=== PATIENT | male | born 1990 | race Caucasian/White ===

== ENCOUNTER 2023-08-07 14:25 | Emergency (ER) | payer MEDICAID ==
[~2023-08-07] VITALS: Ht 175.3 cm; Wt 83.9 kg
[2023-08-07 14:34] VITALS: BP 126/91; PULSE 89; RESP 14; TEMP 98; O2SAT 99
[2023-08-07] MEDS ORDERED: methocarbamoL 500 MG TAB PO STA (14:56)
[2023-08-07] MEDS ORDERED: KETOROLAC 30 MG/ML VIAL IM ONE (15:00)
[2023-08-07] MEDS ORDERED: LIDOCAINE 4% PATCH 1 EA PATCH TP ONE (15:00)
[2023-08-07 15:05] LABS: BASOPHILS % (AUTO) 0.4 % (0.0-2.0); EOSINOPHILS # (AUTO) 0.1 K/uL (0-0.4); HEMATOCRIT 51.1 % (36-52); HEMOGLOBIN 17.8 g/dL (12.0-18.0); LYMPHOCYTES # (AUTO) 2.1 K/uL (2.0-11.5); LYMPHOCYTES % (AUTO) 22.3 % (20.5-51.1); MEAN CORPUSCULAR HEMOGLOBIN 30 pg (27-31); MEAN CORPUSCULAR HGB CONC 35 g/dL (33-37); MEAN CORPUSCULAR VOLUME 86.5 fL (80-94); MONOCYTES # (AUTO) 0.4 K/uL (0.8-1.0); MONOCYTES % (AUTO) 4.6 % (1.7-9.3); NEUTROPHILS # (AUTO) 6.7 K/uL (1.8-7.7); NEUTROPHILS % (AUTO) 71.7 % (42.2-75.2); PLATELET COUNT (AUTO) 217 K/uL (140-450); RED CELL DISTRIBUTION WIDTH 13.5 % (11.6-13.7); WHITE BLOOD COUNT (AUTO) 9.3 K/uL (4.8-10.8)
[2023-08-07 15:23] LABS: ALANINE AMINOTRANSFERASE 24 U/L (12-78); ALBUMIN 4.6 g/dL (3.4-5.0); ALKALINE PHOSPHATASE 76 U/L (50-136); ANION GAP 8.1 (8-16); ASPARTATE AMINOTRANSFERASE 12 U/L (15-37); CALCIUM 9.4 mg/dL (8.5-10.1); CARBON DIOXIDE 33.4 mmol/L (21-32); CHLORIDE 101 mmol/L (98-107); GFR ARICAN-AMERICAN 112 mL/min (>90); GFR NON ARICAN-AMERICAN 93 mL/min (>90); GLUCOSE 102 mg/dL (74-106); POTASSIUM 4.5 mmol/L (3.5-5.1); SODIUM SERUM 138 mmol/L (136-145); TOTAL BILIRUBIN 1.1 mg/dL (0.0-1.0); TOTAL PROTEIN, SERUM 8.2 g/dL (6.4-8.2); UREA NITROGEN, BLOOD 11 mg/dL (7-18)
[2023-08-07] MEDS ORDERED: DICL100G32 TP (15:45)
[2023-08-07] MEDS ORDERED: LID5T TP (15:45)
[2023-08-07] MEDS ORDERED: METH-1681 PO (15:45)
[2023-08-07 15:57] VITALS: BP 126/91; PULSE 89; RESP 14; TEMP 98; O2SAT 99
== END 2023-08-07 15:57 | disposition home or self-care (01) ==
LOC: MED 14:25
DX: R07.89 Other chest pain (principal); R07.9 Chest pain, unspecified; R05.9 Cough, unspecified; R06.2 Wheezing; Z79.899 Other long term (current) drug therapy
CPT/HCPCS: 36415; 71045; 80053; 84484; 85025; 93005; 99285; J1885